=== PATIENT | male | born 1965 | race Caucasian/White ===

== ENCOUNTER 2016-07-10 15:22 | Emergency (ER) | payer SELFPAY ==
[~2016-07-10] VITALS: Ht 170.1 cm; Wt 85.7 kg
[~2016-07-10 15:22] MED LIST: ANAPROX DS550 MG PO; ATENOLOL25 MG PO; ATENOLOL50 MG PO; BACTRIM DS 8001 TA1 PO; BP PILL; CIPRO500 MG PO; DOLOPHINE5 MG PO; DOXYCYCLINE100 M3 PO; FLEXERIL10 MG PO; FLEXERIL5 MG PO; HYDROCODONE BIT1 T11 PO; LISINOPRIL HCTZ1 TA1 PO; LISINOPRIL-HYDR1 TA2 PO; LISINOPRIL20 MG PO; MINIPRESS1 M1 PO; MOTRIN800 MG PO; MS CONTIN60 MG PO; Motrin,Rufen800 MG PO; NEURONTIN300 MG PO; OMEPRAZOLE20 MG PO; OXYCODONE HCL20 M1 PO; OXYCODONE HCL30 MG PO; OXYCODONE15 MG PO; OXYCODONE30 MG PO; OXYCONTIN15 MG PO; OXYCONTIN40 MG PO; PERCOCET 325 MG1 TA2 PO; PERCOCET 325 MG1 TA6 PO; PERCOCET 325 MG1 TAB PO; PERCOCET 650 MG1 TA1 PO; PHENERGAN W/ DE30 ML PO; PHENERGAN W/DM120 ML PO; PREDNICOT10 MG PO; PREDNICOT20 MG PO; PREDNISONE10 MG PO; PRILOSEC20 MG PO; PROAIR HFA0.09 MG/AC INH; ROXICODONE30 MG PO; TRAMADOL HCL50 MG PO; ULTRAM50 MG PO; VIBRAMYCIN100 MG PO; VICODIN 500 MG-1 TAB PO; VICODIN HP 6601 TA1 PO; VOLTAREN50 M1 PO; ZESTRIL,PRINIVI20 MG PO; ZESTRIL20 MG PO; ZITHROMAX250 MG PO
[2016-07-10] MEDS ORDERED: GOOD NEIGHBOR L10 MG PO (16:01)
[2016-07-10] MEDS ORDERED: HYDROXYZINE PAM50 MG PO (16:02)
[2016-07-10] MEDS ORDERED: OXYCODONE AND A1 TA3 PO (16:02)
[2016-07-10] MEDS ORDERED: FLUTICASON0.05 MG/AC NAS (16:02)
[2016-07-10] MEDS ORDERED: CITALOPRAM HYDR40 MG PO (16:02)
[2016-07-10] MEDS ORDERED: LISINOPRIL AND1 TA2 PO (16:02)
[2016-07-10] MEDS ORDERED: NOVAPLUS V0.09 MG/Ac INH (16:03)
[2016-07-10 18:00] VITALS: BP 118/74
[2016-07-11] MEDS ORDERED: CEPHALEXIN500 M1 PO (12:05)
== END 2016-07-10 17:26 | disposition home or self-care (01) ==
LOC: ED 15:22
DX: T24.201A Burn of second degree of unspecified site of right lower limb, except ankle and foot, initial encounter (principal); T23.201A Burn of second degree of right hand, unspecified site, initial encounter; I10 Essential (primary) hypertension; G89.29 Other chronic pain; M54.9 Dorsalgia, unspecified; X03.0XXA Exposure to flames in controlled fire, not in building or structure, initial encounter; Y93.89 Activity, other specified; Y92.9 Unspecified place or not applicable; Y99.9 Unspecified external cause status

== ENCOUNTER 2016-07-11 11:36 | Emergency (ER) | payer SELFPAY ==
[~2016-07-11 11:36] MED LIST changes: +CITALOPRAM HYDR40 MG PO; +FLUTICASON0.05 MG/AC NAS; +GOOD NEIGHBOR L10 MG PO; +HYDROXYZINE PAM50 MG PO; +LISINOPRIL AND1 TA2 PO; +NOVAPLUS V0.09 MG/Ac INH; +OXYCODONE AND A1 TA3 PO
[2016-07-11 11:50] VITALS: BP 134/66
[2016-07-11] MEDS ORDERED: CEPHALEXIN500 M1 PO (12:05)
== END 2016-07-11 12:23 | disposition home or self-care (01) ==
LOC: ED 11:36
DX: Z48.00 Encounter for change or removal of nonsurgical wound dressing (principal); T24.201D Burn of second degree of unspecified site of right lower limb, except ankle and foot, subsequent encounter; F17.200 Nicotine dependence, unspecified, uncomplicated; Z98.890 Other specified postprocedural states; Z79.899 Other long term (current) drug therapy; X58.XXXD Exposure to other specified factors, subsequent encounter

== ENCOUNTER 2016-07-17 10:56 | Emergency (ER) | payer MEDICAID ==
[~2016-07-17] VITALS: Ht 170.1 cm; Wt 86.2 kg
[~2016-07-17 10:56] MED LIST changes: +CEPHALEXIN500 M1 PO
[2016-07-17 10:59] VITALS: BP 142/76
[2016-07-17] MEDS ORDERED: SILVADENE1% T (11:05)
== END 2016-07-17 11:15 | disposition home or self-care (01) ==
LOC: ED 10:56
DX: Z48.00 Encounter for change or removal of nonsurgical wound dressing (principal); R03.0 Elevated blood-pressure reading, without diagnosis of hypertension; I10 Essential (primary) hypertension; F17.200 Nicotine dependence, unspecified, uncomplicated

== ENCOUNTER → 2016-07-29 | Outpatient (CLI) | payer MEDICAID ==
[~2016-07-29] MED LIST changes: +SILVADENE1% T
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
== END ==
LOC: WOUNDCARE 12:28
DX: T24.231D Burn of second degree of right lower leg, subsequent encounter (principal); I10 Essential (primary) hypertension; F32.9 Major depressive disorder, single episode, unspecified; F17.210 Nicotine dependence, cigarettes, uncomplicated; X08.8XXD Exposure to other specified smoke, fire and flames, subsequent encounter

== ENCOUNTER → 2016-08-05 | Outpatient (CLI) | payer MEDICAID ==
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
== END ==
LOC: WOUNDCARE 02:44
DX: T24.231D Burn of second degree of right lower leg, subsequent encounter (principal); X08.8XXD Exposure to other specified smoke, fire and flames, subsequent encounter

== ENCOUNTER → 2017-01-11 | Outpatient (CLI) | payer OTHER | END | disposition home or self-care (01) | LOC: MRI 13:35 | DX: M51.26 Other intervertebral disc displacement, lumbar region (principal); M51.36 Other intervertebral disc degeneration, lumbar region; M47.896 Other spondylosis, lumbar region ==

== ENCOUNTER 2017-03-07 15:54 | Emergency (ER) | payer OTHER ==
[~2017-03-07] VITALS: Ht 172.7 cm; Wt 86.6 kg
[2017-03-07 16:18] VITALS: BP 159/87
== END 2017-03-07 16:46 | disposition home or self-care (01) ==
LOC: ED 15:54
DX: Z00.8 Encounter for other general examination (principal); F17.200 Nicotine dependence, unspecified, uncomplicated; Z79.899 Other long term (current) drug therapy

== ENCOUNTER → 2017-05-11 | Outpatient (CLI) | payer OTHER | END | disposition home or self-care (01) | LOC: RAD 12:52 | DX: J32.1 Chronic frontal sinusitis (principal); J40 Bronchitis, not specified as acute or chronic; R05 Cough; R09.89 Other specified symptoms and signs involving the circulatory and respiratory systems; I10 Essential (primary) hypertension; F17.200 Nicotine dependence, unspecified, uncomplicated ==

== ENCOUNTER 2017-10-07 15:44 | Emergency (ER) | payer OTHER ==
[~2017-10-07] VITALS: Ht 170.1 cm; Wt 91.2 kg
[2017-10-07 15:48] VITALS: BP 130/94
[2017-10-07] MEDS ORDERED: DIPHENHYDRAMINE50 M1 PO (16:10)
[2017-10-07] MEDS ORDERED: LIDEX 0.05% CRE15 GM T (16:10)
[2017-10-07] MEDS ORDERED: PREDNISONE20 M1 PO (16:10)
[2017-12-01] MEDS ORDERED: VIBRAMYCIN100 MG PO (12:41)
== END 2017-10-07 16:15 | disposition home or self-care (01) ==
LOC: ED 15:44
DX: L25.9 Unspecified contact dermatitis, unspecified cause (principal); I10 Essential (primary) hypertension; Z79.899 Other long term (current) drug therapy

== ENCOUNTER → 2018-03-22 | Outpatient (CLI) | payer OTHER ==
[~2018-03-22] MED LIST changes: +AUGMENTIN 875875 MG PO; +AVPAK AZITHROM250 MG PO; +BACLOFEN5 MG PO; +CLONAZEPAM0.5 M2 PO; +DIPHENHYDRAMINE50 M1 PO; +LIDEX 0.05% CRE15 GM T; +LORATADINE-D 21 EACH PO; +MIRTAZAPINE30 M2 PO; +MUCINEX ER600 MG PO; +PERCOCET 7.5-31 EACH PO; +PREDNISONE20 M1 PO
== END | disposition home or self-care (01) ==
LOC: LAB 10:44
DX: R53.83 Other fatigue (principal)

== ENCOUNTER 2018-06-17 14:26 | Emergency (ER) | payer OTHER ==
[~2018-06-17] VITALS: Ht 170.1 cm; Wt 95.3 kg
[2018-06-17 14:27] VITALS: BP 171/105
== END 2018-06-17 15:06 | disposition home or self-care (01) ==
LOC: ED 14:26
DX: G89.29 Other chronic pain (principal); M54.9 Dorsalgia, unspecified; F17.200 Nicotine dependence, unspecified, uncomplicated; Z76.0 Encounter for issue of repeat prescription; Z79.899 Other long term (current) drug therapy

== ENCOUNTER 2018-06-18 16:10 | Emergency (ER) | payer OTHER ==
[~2018-06-18] VITALS: Ht 170.1 cm; Wt 95.3 kg
[2018-06-18 16:12] VITALS: BP 141/98
== END 2018-06-18 17:47 | disposition home or self-care (01) ==
LOC: ED 16:10
DX: M54.41 Lumbago with sciatica, right side (principal); F17.200 Nicotine dependence, unspecified, uncomplicated; Z79.899 Other long term (current) drug therapy

== ENCOUNTER 2018-06-20 00:12 | Emergency (ER) | payer OTHER ==
[~2018-06-20] VITALS: Ht 170.1 cm; Wt 104.3 kg
[2018-06-20 00:15] VITALS: BP 130/70
== END 2018-06-20 02:00 | disposition home or self-care (01) ==
LOC: ED 00:12
DX: G89.29 Other chronic pain (principal); R10.9 Unspecified abdominal pain; K21.9 Gastro-esophageal reflux disease without esophagitis; J44.9 Chronic obstructive pulmonary disease, unspecified; I10 Essential (primary) hypertension; F17.200 Nicotine dependence, unspecified, uncomplicated; Z79.899 Other long term (current) drug therapy

== ENCOUNTER 2018-06-23 10:54 | Emergency (ER) | payer OTHER ==
[~2018-06-23] VITALS: Ht 170.1 cm; Wt 99.8 kg
[2018-06-23 14:16] VITALS: BP 134/81
== END 2018-06-23 14:27 | disposition home or self-care (01) ==
LOC: ED 10:54
DX: G89.29 Other chronic pain (principal); M54.5 Low back pain; J44.9 Chronic obstructive pulmonary disease, unspecified; K21.9 Gastro-esophageal reflux disease without esophagitis; I10 Essential (primary) hypertension; F17.200 Nicotine dependence, unspecified, uncomplicated; Z79.899 Other long term (current) drug therapy

== ENCOUNTER 2018-08-25 15:58 | Emergency (ER) | payer OTHER ==
[~2018-08-25] VITALS: Ht 170.1 cm; Wt 96.2 kg
[2018-08-25 16:02] VITALS: BP 116/77
[2018-08-25] MEDS ORDERED: PREDNISONE20 M1 PO (16:55)
[2018-08-25] MEDS ORDERED: PERCOCET 7.5-31 EACH PO (16:55)
[2018-08-25] MEDS ORDERED: ROBAXIN500 M1 PO (16:55)
== END 2018-08-25 17:18 | disposition home or self-care (01) ==
LOC: ED 15:58
DX: G89.29 Other chronic pain (principal); M54.5 Low back pain; R20.0 Anesthesia of skin; R20.2 Paresthesia of skin; R22.2 Localized swelling, mass and lump, trunk; F17.200 Nicotine dependence, unspecified, uncomplicated; Z79.899 Other long term (current) drug therapy

== ENCOUNTER → 2018-09-15 | Outpatient (CLI) | payer OTHER ==
[~2018-09-15] MED LIST changes: +ROBAXIN500 M1 PO
[2018-09-15 09:42] LABS: BASO % 0.4 % (0.0-1.0); EOS # 0.2 10*3/uL (0.0-0.4); EOS % 2.3 % (1.0-4.0); HEMATOCRIT 42.7 % (42.0-52.0); HEMOGLOBIN 14.6 g/dl (14.0-18.0); LYMPH % 36.5 % (27.0-41.0); MEAN CELL VOLUME 98.6 fl (80.0-94.0); MEAN CORPUSCULAR HGB 33.7 pg (27.0-31.0); MEAN CORPUSCULAR HGB CONC 34.2 g/dl (33.0-37.0); MEAN PLATELET VOLUME 9.3 fl (9.6-12.3); MONO # 0.6 10*3/uL (0.1-1.0); MONO % 7.8 % (3.0-9.0); NEUT # 4.2 10*3/uL (2.3-7.9); NEUT % 51.3 % (47.0-73.0); PLATELET COUNT AUTOMATED 208 10*3/uL (130-400); RED BLOOD COUNT 4.33 10*6/uL (4.50-5.90); RED CELL DISTRI WIDTH 13.5 % (0-14.5); WHITE BLOOD COUNT 8.2 10*3/uL (4.8-10.8)
[2018-09-15 10:13] LABS: ACT PARTIAL THROMBO TIME 28.6 SECONDS (20.0-32.1); INTERNATIONAL NORM RATIO 0.9 (2.0-3.5)
== END | disposition home or self-care (01) ==
LOC: LAB 09:22
PROVIDERS: Nurse Practitioner Primary Care
DX: D68.9 Coagulation defect, unspecified (principal)

== ENCOUNTER → 2018-10-13 | Outpatient (CLI) | payer OTHER | END | disposition home or self-care (01) | LOC: RESCLI 00:22 | DX: Z12.11 Encounter for screening for malignant neoplasm of colon (principal); M54.40 Lumbago with sciatica, unspecified side; G89.29 Other chronic pain; F41.9 Anxiety disorder, unspecified; J30.2 Other seasonal allergic rhinitis; I10 Essential (primary) hypertension; J44.9 Chronic obstructive pulmonary disease, unspecified; N52.8 Other male erectile dysfunction; G25.81 Restless legs syndrome; K21.9 Gastro-esophageal reflux disease without esophagitis; Z72.0 Tobacco use; Z79.899 Other long term (current) drug therapy; Z88.8 Allergy status to other drugs, medicaments and biological substances ==

== ENCOUNTER 2018-12-19 10:01 | Emergency (ER) | payer OTHER ==
[~2018-12-19] VITALS: Ht 172.7 cm; Wt 92.1 kg
[2018-12-19 10:04] VITALS: BP 134/78
[2018-12-19] MEDS ORDERED: PREDNISONE20 M1 PO (11:16)
[2018-12-19] MEDS ORDERED: ROBAXIN500 M1 PO (11:21)
== END 2018-12-19 11:23 | disposition home or self-care (01) ==
LOC: ED 10:01
DX: S39.012A Strain of muscle, fascia and tendon of lower back, initial encounter (principal); M54.41 Lumbago with sciatica, right side; F17.200 Nicotine dependence, unspecified, uncomplicated; Z79.899 Other long term (current) drug therapy; W01.0XXA Fall on same level from slipping, tripping and stumbling without subsequent striking against object, initial encounter; Y93.E5 Activity, floor mopping and cleaning; Y92.098 Other place in other non-institutional residence as the place of occurrence of the external cause; Y99.8 Other external cause status

== ENCOUNTER → 2018-12-19 | Outpatient (CLI) | payer OTHER | END | disposition home or self-care (01) | LOC: RESCLI 09:18 | DX: S79.911A Unspecified injury of right hip, initial encounter (principal); J44.9 Chronic obstructive pulmonary disease, unspecified; F41.9 Anxiety disorder, unspecified; J30.2 Other seasonal allergic rhinitis; N52.8 Other male erectile dysfunction; M54.40 Lumbago with sciatica, unspecified side; G25.81 Restless legs syndrome; I10 Essential (primary) hypertension; F17.210 Nicotine dependence, cigarettes, uncomplicated; X58.XXXA Exposure to other specified factors, initial encounter; Y93.89 Activity, other specified; Y92.89 Other specified places as the place of occurrence of the external cause; Y99.8 Other external cause status; Z79.899 Other long term (current) drug therapy ==

== ENCOUNTER 2018-12-30 14:17 | Emergency (ER) | payer OTHER ==
[~2018-12-30] VITALS: Wt 93.0 kg
[2018-12-30 14:18] VITALS: BP 156/90
[2018-12-30] MEDS ORDERED: Motrin,Rufen800 MG PO ×2 (15:56→16:19)
== END 2018-12-30 16:40 | disposition home or self-care (01) ==
LOC: ED 14:17
DX: S40.011A Contusion of right shoulder, initial encounter (principal); S00.81XA Abrasion of other part of head, initial encounter; G89.29 Other chronic pain; K21.9 Gastro-esophageal reflux disease without esophagitis; I10 Essential (primary) hypertension; E78.00 Pure hypercholesterolemia, unspecified; F17.200 Nicotine dependence, unspecified, uncomplicated; Z98.890 Other specified postprocedural states; Z79.899 Other long term (current) drug therapy; Y04.0XXA Assault by unarmed brawl or fight, initial encounter; Y93.89 Activity, other specified; Y92.89 Other specified places as the place of occurrence of the external cause; Y99.9 Unspecified external cause status

== ENCOUNTER 2019-01-13 12:50 | Emergency (ER) | payer OTHER ==
[~2019-01-13] VITALS: Ht 170.1 cm; Wt 93.9 kg
[2019-01-13 12:53] VITALS: BP 125/82
[2019-01-13 13:24] LABS: BASO % 0.2 % (0.0-1.0); EOS # 0.1 10*3/uL (0.0-0.4); EOS % 1.2 % (1.0-4.0); HEMATOCRIT 45.1 % (42.0-52.0); HEMOGLOBIN 15.3 g/dl (14.0-18.0); LYMPH # 1.9 10*3/uL (1.3-4.4); LYMPH % 21.5 % (27.0-41.0); MEAN CELL VOLUME 95.8 fl (80.0-94.0); MEAN CORPUSCULAR HGB 32.5 pg (27.0-31.0); MEAN CORPUSCULAR HGB CONC 33.9 g/dl (33.0-37.0); MEAN PLATELET VOLUME 9.2 fl (9.6-12.3); MONO # 0.6 10*3/uL (0.1-1.0); NEUT # 6.1 10*3/uL (2.3-7.9); NEUT % 68.9 % (47.0-73.0); PLATELET COUNT AUTOMATED 306 10*3/uL (130-400); RED BLOOD COUNT 4.71 10*6/uL (4.50-5.90); RED CELL DISTRI WIDTH 12.8 % (0-14.5); WHITE BLOOD COUNT 8.9 10*3/uL (4.8-10.8)
[2019-01-13 13:39] LABS: ALBUMIN 3.5 gm/dl (3.1-4.5); ALKALINE PHOSPHATASE 98 U/L (45-117); BUN 11 mg/dl (7-24); CHLORIDE 98 mmol/L (98-107); CREATININE 0.92 mg/dL (0.70-1.30); POTASSIUM 3.6 mmol/L (3.5-5.1); SGOT/AST 21 IU/L (3-35); SGPT/ALT 27 U/L (12-78); SODIUM 131 mmol/L (136-145); TOTAL PROTEIN 7.7 gm/dL (6.4-8.2)
== END 2019-01-13 22:05 | disposition short-term general hospital (02) ==
LOC: ED 12:50
PROVIDERS: Emergency Medicine
DX: N50.812 Left testicular pain (principal); N50.811 Right testicular pain; R10.30 Lower abdominal pain, unspecified; G89.29 Other chronic pain; J44.9 Chronic obstructive pulmonary disease, unspecified; K21.9 Gastro-esophageal reflux disease without esophagitis; I10 Essential (primary) hypertension; F17.200 Nicotine dependence, unspecified, uncomplicated; Z79.899 Other long term (current) drug therapy

== ENCOUNTER 2019-01-23 20:43 | Emergency (ER) | payer OTHER ==
[~2019-01-23] VITALS: Ht 170.1 cm; Wt 92.1 kg
[2019-01-23 21:26] VITALS: BP 149/88
== END 2019-01-23 22:20 | disposition home or self-care (01) ==
LOC: ED 20:43
DX: G89.29 Other chronic pain (principal); M25.511 Pain in right shoulder; J44.9 Chronic obstructive pulmonary disease, unspecified; K21.9 Gastro-esophageal reflux disease without esophagitis; I10 Essential (primary) hypertension; F17.200 Nicotine dependence, unspecified, uncomplicated; Z79.899 Other long term (current) drug therapy

== ENCOUNTER → 2019-04-06 | Outpatient (CLI) | payer OTHER ==
[~2019-04-06] MED LIST changes: +ZANAFLEX4 M1 PO
== END | disposition home or self-care (01) ==
LOC: RESCLI 04-05 08:38
DX: Z12.5 Encounter for screening for malignant neoplasm of prostate (principal); Z13.29 Encounter for screening for other suspected endocrine disorder; Z12.11 Encounter for screening for malignant neoplasm of colon; Z13.220 Encounter for screening for lipoid disorders; S49.91XA Unspecified injury of right shoulder and upper arm, initial encounter; M54.40 Lumbago with sciatica, unspecified side; G25.81 Restless legs syndrome; J44.9 Chronic obstructive pulmonary disease, unspecified; I10 Essential (primary) hypertension; F41.9 Anxiety disorder, unspecified; J30.2 Other seasonal allergic rhinitis; E55.9 Vitamin D deficiency, unspecified; F31.9 Bipolar disorder, unspecified; K40.91 Unilateral inguinal hernia, without obstruction or gangrene, recurrent; N52.8 Other male erectile dysfunction; Z72.0 Tobacco use

== ENCOUNTER 2019-04-08 11:20 | Emergency (ER) | payer OTHER ==
[~2019-04-08] VITALS: Ht 170.1 cm; Wt 95.3 kg
[~2019-04-08 11:20] MED LIST changes: -ZANAFLEX4 M1 PO
[2019-04-08 11:21] VITALS: BP 147/76
[2019-04-08] MEDS ORDERED: ZANAFLEX4 M1 PO (12:53)
== END 2019-04-08 12:58 | disposition home or self-care (01) ==
LOC: ED 11:20
DX: J06.9 Acute upper respiratory infection, unspecified (principal); G89.29 Other chronic pain; K21.9 Gastro-esophageal reflux disease without esophagitis; I10 Essential (primary) hypertension; J44.9 Chronic obstructive pulmonary disease, unspecified; F17.200 Nicotine dependence, unspecified, uncomplicated; Z79.899 Other long term (current) drug therapy

== ENCOUNTER 2019-04-10 14:26 | Emergency (ER) | payer OTHER ==
[~2019-04-10] VITALS: Ht 170.1 cm; Wt 95.3 kg
[~2019-04-10 14:26] MED LIST changes: +ZANAFLEX4 M1 PO
[2019-04-10 14:27] VITALS: BP 146/88
== END 2019-04-10 15:51 | disposition left against medical advice (07) ==
LOC: ED 14:26
DX: M54.9 Dorsalgia, unspecified (principal); Z76.0 Encounter for issue of repeat prescription; Z53.21 Procedure and treatment not carried out due to patient leaving prior to being seen by health care provider

== ENCOUNTER 2019-04-14 11:02 | Emergency (ER) | payer OTHER ==
[~2019-04-14] VITALS: Wt 108.9 kg
[2019-04-14 11:03] VITALS: BP 155/88
[2019-04-14] MEDS ORDERED: MUCINEX1200 M1 PO (11:24)
[2019-04-14] MEDS ORDERED: PERCOCET 10-321 EACH PO (11:27)
== END 2019-04-14 11:32 | disposition home or self-care (01) ==
LOC: ED 11:02
DX: J06.9 Acute upper respiratory infection, unspecified (principal); G89.29 Other chronic pain; M54.5 Low back pain; I10 Essential (primary) hypertension; K21.9 Gastro-esophageal reflux disease without esophagitis; J44.9 Chronic obstructive pulmonary disease, unspecified; F17.200 Nicotine dependence, unspecified, uncomplicated; Z79.899 Other long term (current) drug therapy

== ENCOUNTER → 2019-11-22 | Outpatient (CLI) | payer OTHER ==
[~2019-11-22] MED LIST changes: +MUCINEX1200 M1 PO; +PERCOCET 10-321 EACH PO
== END | disposition home or self-care (01) ==
LOC: RESCLI 03:53
DX: Z12.11 Encounter for screening for malignant neoplasm of colon (principal); N52.8 Other male erectile dysfunction; G25.81 Restless legs syndrome; J30.2 Other seasonal allergic rhinitis; M54.40 Lumbago with sciatica, unspecified side; G47.9 Sleep disorder, unspecified; J44.9 Chronic obstructive pulmonary disease, unspecified; I10 Essential (primary) hypertension; E55.9 Vitamin D deficiency, unspecified; K21.9 Gastro-esophageal reflux disease without esophagitis; E78.00 Pure hypercholesterolemia, unspecified; F41.9 Anxiety disorder, unspecified

== ENCOUNTER 2019-12-09 12:58 | Emergency (ER) | payer OTHER ==
[~2019-12-09] VITALS: Ht 170.1 cm; Wt 90.7 kg
[2019-12-09 13:18] VITALS: BP 137/97
== END 2019-12-09 15:31 | disposition home or self-care (01) ==
LOC: ED 12:58
DX: G89.29 Other chronic pain (principal); R05 Cough; F17.200 Nicotine dependence, unspecified, uncomplicated; Z20.828 Contact with and (suspected) exposure to other viral communicable diseases; Z79.899 Other long term (current) drug therapy

== ENCOUNTER → 2020-03-13 | Outpatient (CLI) | payer OTHER | END | disposition home or self-care (01) | LOC: COVID19 09:31 | PROVIDERS: ATTEND Social Worker Clinical | DX: Z20.828 Contact with and (suspected) exposure to other viral communicable diseases (principal) ==

== ENCOUNTER → 2020-04-21 | Outpatient (CLI) | payer OTHER | END | disposition home or self-care (01) | LOC: COVID19 15:00 | PROVIDERS: ATTEND Internal Medicine | DX: Z11.52 Encounter for screening for COVID-19 (principal) ==

== ENCOUNTER 2020-07-05 13:05 | Emergency (ER) | payer OTHER ==
[~2020-07-05] VITALS: Ht 170.1 cm; Wt 94.3 kg
[2020-07-05 13:23] VITALS: BP 126/69
[2020-07-05] MEDS ORDERED: PERCOCET 7.5-31 EACH PO (14:15)
== END 2020-07-05 14:38 | disposition home or self-care (01) ==
LOC: ED 13:05
DX: Z76.0 Encounter for issue of repeat prescription (principal); Z79.899 Other long term (current) drug therapy; Z98.890 Other specified postprocedural states

== ENCOUNTER → 2020-07-24 | Outpatient (CLI) | payer OTHER | END | disposition home or self-care (01) | LOC: RESCLI 02:15 | PROVIDERS: ATTEND Internal Medicine Nephrology | DX: Z12.11 Encounter for screening for malignant neoplasm of colon (principal); E55.9 Vitamin D deficiency, unspecified; M54.40 Lumbago with sciatica, unspecified side; J44.9 Chronic obstructive pulmonary disease, unspecified; J30.2 Other seasonal allergic rhinitis; I10 Essential (primary) hypertension; K21.9 Gastro-esophageal reflux disease without esophagitis; G89.4 Chronic pain syndrome; G25.81 Restless legs syndrome; N52.8 Other male erectile dysfunction; F17.200 Nicotine dependence, unspecified, uncomplicated; Z79.899 Other long term (current) drug therapy; Z98.890 Other specified postprocedural states ==

== ENCOUNTER 2020-08-05 16:51 | Emergency (ER) | payer OTHER ==
[2020-08-05 17:45] VITALS: BP 142/88
== END 2020-08-05 19:22 | disposition home or self-care (01) ==
LOC: ED 16:51
DX: M54.5 Low back pain (principal); G89.29 Other chronic pain; Z79.899 Other long term (current) drug therapy; Z98.890 Other specified postprocedural states

== ENCOUNTER → 2020-08-27 | Outpatient (CLI) | payer OTHER | END | disposition home or self-care (01) | LOC: RESCLI 08:39 | PROVIDERS: ATTEND Student in an Organized Health Care Education/Training Program | DX: E55.9 Vitamin D deficiency, unspecified (principal); J44.9 Chronic obstructive pulmonary disease, unspecified; J30.2 Other seasonal allergic rhinitis; I10 Essential (primary) hypertension; K21.9 Gastro-esophageal reflux disease without esophagitis; N52.8 Other male erectile dysfunction; F41.9 Anxiety disorder, unspecified; G25.81 Restless legs syndrome; F17.210 Nicotine dependence, cigarettes, uncomplicated; Z79.899 Other long term (current) drug therapy; Z98.890 Other specified postprocedural states ==

== ENCOUNTER 2020-09-09 03:03 | Emergency (ER) | payer OTHER ==
[~2020-09-09] VITALS: Ht 172.7 cm; Wt 99.8 kg
[2020-09-09 03:25] VITALS: BP 164/100
== END 2020-09-09 03:47 | disposition home or self-care (01) ==
LOC: ED 03:03
DX: M25.551 Pain in right hip (principal); G89.29 Other chronic pain; Z79.899 Other long term (current) drug therapy; Z98.890 Other specified postprocedural states

== ENCOUNTER → 2020-10-03 | Outpatient (CLI) | payer OTHER | END | disposition home or self-care (01) | LOC: RESCLI 01:44 | PROVIDERS: ATTEND Internal Medicine | DX: Z12.11 Encounter for screening for malignant neoplasm of colon (principal); Z12.2 Encounter for screening for malignant neoplasm of respiratory organs; N52.8 Other male erectile dysfunction; E55.9 Vitamin D deficiency, unspecified; J44.9 Chronic obstructive pulmonary disease, unspecified; J30.2 Other seasonal allergic rhinitis; I10 Essential (primary) hypertension; K21.9 Gastro-esophageal reflux disease without esophagitis; G25.81 Restless legs syndrome; F41.9 Anxiety disorder, unspecified; E66.9 Obesity, unspecified; M54.30 Sciatica, unspecified side; Z79.899 Other long term (current) drug therapy ==

== ENCOUNTER 2020-10-08 15:36 | Emergency (ER) | payer OTHER ==
[~2020-10-08] VITALS: Ht 170.1 cm; Wt 93.4 kg
[2020-10-08 15:39] VITALS: BP 157/90
== END 2020-10-08 18:18 | disposition home or self-care (01) ==
LOC: ED 15:36
DX: S70.02XA Contusion of left hip, initial encounter (principal); F17.200 Nicotine dependence, unspecified, uncomplicated; Z79.899 Other long term (current) drug therapy; Z98.890 Other specified postprocedural states; W19.XXXA Unspecified fall, initial encounter; Y93.89 Activity, other specified; Y92.89 Other specified places as the place of occurrence of the external cause; Y99.8 Other external cause status

== ENCOUNTER → 2020-10-24 | Outpatient (CLI) | payer OTHER ==
[~2020-10-24] MED LIST changes: +HYDROCODONE-AC1 EAC1 PO
[2020-10-24 11:18] LABS: BASO # 0.1 10*3/uL (0.0-0.1); BASO % 0.7 % (0.0-1.0); EOS # 0.4 10*3/uL (0.0-0.4); EOS % 4.9 % (1.0-4.0); LYMPH # 2.2 10*3/uL (1.3-4.4); LYMPH % 29.9 % (27.0-41.0); MEAN CELL VOLUME 96.6 fl (80.0-94.0); MEAN CORPUSCULAR HGB 32.2 pg (27.0-31.0); MEAN CORPUSCULAR HGB CONC 33.3 g/dl (33.0-37.0); MEAN PLATELET VOLUME 9.6 fl (9.6-12.3); MONO # 0.9 10*3/uL (0.1-1.0); MONO % 12.1 % (3.0-9.0); NEUT # 3.7 10*3/uL (2.3-7.9); NEUT % 50.6 % (47.0-73.0); PLATELET COUNT AUTOMATED 214 10*3/uL (130-400); RED BLOOD COUNT 4.66 10*6/uL (4.50-5.90); RED CELL DISTRI WIDTH 13.9 % (0-14.5); WHITE BLOOD COUNT 7.4 10*3/uL (4.8-10.8)
[2020-10-24 11:41] LABS: ALBUMIN 3.6 gm/dl (3.1-4.5); BUN 10 mg/dl (7-24); CHLORIDE 100 mmol/L (98-107); CHOLESTEROL 218 mg/dL (<200); POTASSIUM 3.5 mmol/L (3.5-5.1); SGOT/AST 18 IU/L (3-35); SGPT/ALT 24 U/L (12-78); SODIUM 136 mmol/L (136-145); TOTAL PROTEIN 7.6 gm/dL (6.4-8.2); TRIGLYCERIDES 398 mg/dl (<150)
[2020-10-24 11:51] LABS: ALKALINE PHOSPHATASE 93 U/L (45-117); LDL CHOLESTEROL 94 mg/dL (9-159)
[2020-10-30 00:06] LABS: TESTOSTERONE FREE, (DIRECT) 7.5 pg/mL (7.2-24.0)
== END | disposition home or self-care (01) ==
LOC: LAB 10:09
PROVIDERS: Internal Medicine; ATTEND Student in an Organized Health Care Education/Training Program
DX: I10 Essential (primary) hypertension (principal); E66.9 Obesity, unspecified; N52.8 Other male erectile dysfunction

== ENCOUNTER → 2020-11-03 | Outpatient (CLI) | payer OTHER | END | disposition home or self-care (01) | LOC: NM 06:25 | PROVIDERS: ATTEND Orthopaedic Surgery | DX: M13.89 Other specified arthritis, multiple sites (principal); M76.01 Gluteal tendinitis, right hip; M60.88 Other myositis, other site; M70.61 Trochanteric bursitis, right hip; M46.1 Sacroiliitis, not elsewhere classified ==

== ENCOUNTER 2020-11-23 14:07 | Emergency (ER) | payer OTHER ==
[~2020-11-23] VITALS: Ht 170.1 cm; Wt 93.4 kg
[~2020-11-23 14:07] MED LIST changes: -HYDROCODONE-AC1 EAC1 PO
[2020-11-23 14:16] VITALS: BP 178/98
[2020-11-23] MEDS ORDERED: HYDROCODONE-AC1 EAC1 PO (16:20)
== END 2020-11-23 16:36 | disposition home or self-care (01) ==
LOC: ED 14:07
DX: S63.502A Unspecified sprain of left wrist, initial encounter (principal); F17.200 Nicotine dependence, unspecified, uncomplicated; Z79.899 Other long term (current) drug therapy; Z98.890 Other specified postprocedural states; W22.01XA Walked into wall, initial encounter; Y93.89 Activity, other specified; Y92.89 Other specified places as the place of occurrence of the external cause; Y99.8 Other external cause status

== ENCOUNTER → 2020-12-17 | Outpatient (CLI) | payer OTHER ==
[~2020-12-17] MED LIST changes: +HYDROCODONE-AC1 EAC1 PO
== END | disposition home or self-care (01) ==
LOC: RESCLI 01:17
PROVIDERS: ATTEND Family Medicine
DX: J44.9 Chronic obstructive pulmonary disease, unspecified (principal); I10 Essential (primary) hypertension; K21.9 Gastro-esophageal reflux disease without esophagitis; M47.814 Spondylosis without myelopathy or radiculopathy, thoracic region; Z79.899 Other long term (current) drug therapy; N52.8 Other male erectile dysfunction; E55.9 Vitamin D deficiency, unspecified; J30.2 Other seasonal allergic rhinitis; G25.81 Restless legs syndrome; F41.9 Anxiety disorder, unspecified; G89.29 Other chronic pain

== ENCOUNTER → 2021-04-03 | Outpatient (CLI) | payer OTHER | END | disposition home or self-care (01) | LOC: MRI 10:00 | PROVIDERS: ATTEND Pain Medicine Interventional Pain Medicine | DX: M47.817 Spondylosis without myelopathy or radiculopathy, lumbosacral region (principal); M51.37 Other intervertebral disc degeneration, lumbosacral region; M96.1 Postlaminectomy syndrome, not elsewhere classified ==

== ENCOUNTER → 2021-04-20 | Outpatient (CLI) | payer OTHER | END | disposition home or self-care (01) | LOC: US 13:30 | PROVIDERS: ATTEND Internal Medicine | DX: R59.0 Localized enlarged lymph nodes (principal) ==

== ENCOUNTER → 2021-04-29 | Outpatient (CLI) | payer OTHER ==
[2021-04-29 10:08] LABS: BASO # 0.1 10*3/uL (0.0-0.1); BASO % 0.6 % (0.0-1.0); EOS # 0.3 10*3/uL (0.0-0.4); EOS % 3.6 % (1.0-4.0); HEMATOCRIT 44.7 % (42.0-52.0); LYMPH % 24.8 % (27.0-41.0); MEAN CELL VOLUME 91.4 fl (80.0-94.0); MEAN CORPUSCULAR HGB 31.9 pg (27.0-31.0); MEAN CORPUSCULAR HGB CONC 34.9 g/dl (33.0-37.0); MEAN PLATELET VOLUME 9.2 fl (9.6-12.3); MONO # 0.7 10*3/uL (0.1-1.0); MONO % 8.4 % (3.0-9.0); NEUT # 4.7 10*3/uL (2.3-7.9); NEUT % 60.3 % (47.0-73.0); PLATELET COUNT AUTOMATED 221 10*3/uL (130-400); RED BLOOD COUNT 4.89 10*6/uL (4.50-5.90); RED CELL DISTRI WIDTH 12.3 % (0-14.5); WHITE BLOOD COUNT 7.9 10*3/uL (4.8-10.8)
[2021-04-29 10:28] LABS: ALBUMIN 3.6 gm/dl (3.1-4.5); ALKALINE PHOSPHATASE 101 U/L (45-117); BUN 10 mg/dl (7-24); CHLORIDE 101 mmol/L (98-107); CREATININE 1.12 mg/dL (0.70-1.30); POTASSIUM 4.2 mmol/L (3.5-5.1); SGOT/AST 16 IU/L (3-35); SGPT/ALT 29 U/L (12-78); SODIUM 135 mmol/L (136-145)
== END | disposition home or self-care (01) ==
LOC: RESCLI 06:44
PROVIDERS: Internal Medicine; ATTEND Student in an Organized Health Care Education/Training Program
DX: R59.1 Generalized enlarged lymph nodes (principal); R10.31 Right lower quadrant pain

== ENCOUNTER → 2021-05-26 | Outpatient (CLI) | payer OTHER | END | disposition home or self-care (01) | LOC: CT 00:05 | PROVIDERS: ATTEND Emergency Medicine | DX: K57.30 Diverticulosis of large intestine without perforation or abscess without bleeding (principal); K65.4 Sclerosing mesenteritis; G89.29 Other chronic pain; N52.8 Other male erectile dysfunction; E55.9 Vitamin D deficiency, unspecified; K21.9 Gastro-esophageal reflux disease without esophagitis; H66.90 Otitis media, unspecified, unspecified ear; H61.20 Impacted cerumen, unspecified ear; E78.2 Mixed hyperlipidemia; H60.90 Unspecified otitis externa, unspecified ear; R59.1 Generalized enlarged lymph nodes ==

== ENCOUNTER → 2021-06-17 | Outpatient (CLI) | payer OTHER | END | disposition home or self-care (01) | LOC: COVID19 15:56 | PROVIDERS: ATTEND Internal Medicine | DX: Z20.822 Contact with and (suspected) exposure to COVID-19 (principal) ==

== ENCOUNTER 2021-07-11 15:31 | Emergency (ER) | payer OTHER ==
[~2021-07-11] VITALS: Ht 170.1 cm; Wt 98.9 kg
[2021-07-11 15:40] VITALS: BP 110/45
[2021-07-11] MEDS ORDERED: METHOCARBAMOL500 M1 PO (16:51)
== END 2021-07-11 17:05 | disposition home or self-care (01) ==
LOC: ED 15:31
DX: M79.10 Myalgia, unspecified site (principal); Z79.899 Other long term (current) drug therapy; Z87.891 Personal history of nicotine dependence; Z98.890 Other specified postprocedural states

== ENCOUNTER → 2021-07-24 | Outpatient (CLI) | payer OTHER ==
[~2021-07-24] MED LIST changes: +METHOCARBAMOL500 M1 PO
[2021-07-24 09:53] LABS: BASO % 0.4 % (0.0-1.0); EOS # 0.3 10*3/uL (0.0-0.4); EOS % 3.4 % (1.0-4.0); HEMATOCRIT 43.8 % (42.0-52.0); LYMPH # 2.6 10*3/uL (1.3-4.4); LYMPH % 26.5 % (27.0-41.0); MEAN CELL VOLUME 92.2 fl (80.0-94.0); MEAN CORPUSCULAR HGB 31.4 pg (27.0-31.0); MEAN PLATELET VOLUME 9.4 fl (9.6-12.3); MONO # 0.8 10*3/uL (0.1-1.0); MONO % 8.2 % (3.0-9.0); NEUT # 5.9 10*3/uL (2.3-7.9); NEUT % 60.1 % (47.0-73.0); PLATELET COUNT AUTOMATED 213 10*3/uL (130-400); RED BLOOD COUNT 4.75 10*6/uL (4.50-5.90); RED CELL DISTRI WIDTH 12.7 % (0-14.5); WHITE BLOOD COUNT 9.8 10*3/uL (4.8-10.8)
[2021-07-24 10:11] LABS: BUN 17 mg/dl (7-24); CHLORIDE 103 mmol/L (98-107); CHOLESTEROL 135 mg/dL (<200); CREATININE 1.12 mg/dL (0.70-1.30); POTASSIUM 3.9 mmol/L (3.5-5.1); SGOT/AST 17 IU/L (3-35); SGPT/ALT 37 U/L (12-78); SODIUM 135 mmol/L (136-145)
[2021-07-24 10:13] LABS: ALKALINE PHOSPHATASE 101 U/L (45-117); THYROXINE (T4) TOTAL 10.7 ug/dl (4.5-12.1); TOTAL PROTEIN 7.8 gm/dL (6.4-8.2); TRIGLYCERIDES 414 mg/dl (<150)
[2021-07-24 10:22] LABS: T3 UPTAKE 34 % (31-39)
== END | disposition home or self-care (01) ==
LOC: LAB 09:30
PROVIDERS: ATTEND Family Medicine
DX: Z13.1 Encounter for screening for diabetes mellitus (principal); Z13.6 Encounter for screening for cardiovascular disorders; Z51.81 Encounter for therapeutic drug level monitoring; Z00.00 Encounter for general adult medical examination without abnormal findings

== ENCOUNTER 2021-08-16 15:12 | Inpatient (IN) | payer OTHER ==
[~2021-08-16] VITALS: Ht 170.2 cm; Wt 104.8 kg
[2021-08-16 15:21] VITALS: BP 145/62
[2021-08-16 15:55] LABS: BASO % 0.3 % (0.0-1.0); EOS # 0.1 10*3/uL (0.0-0.4); EOS % 1.2 % (1.0-4.0); HEMATOCRIT 42.6 % (42.0-52.0); LYMPH # 1.8 10*3/uL (1.3-4.4); LYMPH % 16.2 % (27.0-41.0); MEAN CELL VOLUME 92.8 fl (80.0-94.0); MEAN CORPUSCULAR HGB 31.8 pg (27.0-31.0); MEAN CORPUSCULAR HGB CONC 34.3 g/dl (33.0-37.0); MEAN PLATELET VOLUME 9.7 fl (9.6-12.3); MONO # 0.9 10*3/uL (0.1-1.0); MONO % 8.4 % (3.0-9.0); NEUT # 8.1 10*3/uL (2.3-7.9); NEUT % 72.8 % (47.0-73.0); PLATELET COUNT AUTOMATED 169 10*3/uL (130-400); RED BLOOD COUNT 4.59 10*6/uL (4.50-5.90); RED CELL DISTRI WIDTH 13.1 % (0-14.5); WHITE BLOOD COUNT 11.1 10*3/uL (4.8-10.8)
[2021-08-16 16:13] LABS: ALKALINE PHOSPHATASE 112 U/L (45-117); BUN 10 mg/dl (7-24); CHLORIDE 104 mmol/L (98-107); CREATININE 1.11 mg/dL (0.70-1.30); POTASSIUM 3.7 mmol/L (3.5-5.1); SGOT/AST 14 IU/L (3-35); SGPT/ALT 21 U/L (12-78); SODIUM 136 mmol/L (136-145); TOTAL PROTEIN 7.5 gm/dL (6.4-8.2)
[2021-08-16 17:30] VITALS: BP 140/60
[2021-08-16] MEDS ORDERED: PERCOCET 10-321 EACH PO (19:26)
[2021-08-16] MEDS ORDERED: WELLBUTRIN SR150 MG PO (19:26)
[2021-08-16 19:33] VITALS: BP 140/58
[2021-08-16 20:58] VITALS: BP 138/79
[2021-08-16 21:27] VITALS: BP 138/74
[2021-08-16 22:00] VITALS: BP 140/66
[2021-08-16] MEDS ORDERED: DOXEPIN HCL10 MG PO (22:40)
[2021-08-16] MEDS ORDERED: ROPINIROLE HYDRO1 MG PO (22:40)
[2021-08-16] MEDS ORDERED: MELATONIN5 M1 PO (22:41)
[2021-08-17] VITALS (9 sets, daily range): BP systolic 116–161; BP diastolic 79–100
[2021-08-17 06:02] LABS: ALKALINE PHOSPHATASE 95 U/L (45-117); BUN 10 mg/dl (7-24); CHLORIDE 109 mmol/L (98-107); CHOLESTEROL 110 mg/dL (<200); CREATININE 0.98 mg/dL (0.70-1.30); LDL CHOLESTEROL 24 mg/dL (9-159); POTASSIUM 3.7 mmol/L (3.5-5.1); SGOT/AST 5 IU/L (3-35); SGPT/ALT 20 U/L (12-78); SODIUM 140 mmol/L (136-145); TOTAL PROTEIN 6.7 gm/dL (6.4-8.2); TRIGLYCERIDES 179 mg/dl (<150)
[2021-08-17 06:07] LABS: THYROID STIM HORMONE (HS) 0.703 uIU/ml (0.358-4.75)
[2021-08-17 06:17] LABS: BASO % 0.4 % (0.0-1.0); EOS # 0.2 10*3/uL (0.0-0.4); EOS % 2.2 % (1.0-4.0); HEMATOCRIT 38.7 % (42.0-52.0); LYMPH # 1.8 10*3/uL (1.3-4.4); LYMPH % 16.7 % (27.0-41.0); MEAN CELL VOLUME 94.6 fl (80.0-94.0); MEAN CORPUSCULAR HGB CONC 33.9 g/dl (33.0-37.0); MEAN PLATELET VOLUME 9.7 fl (9.6-12.3); MONO % 9.9 % (3.0-9.0); NEUT # 7.3 10*3/uL (2.3-7.9); NEUT % 69.5 % (47.0-73.0); PLATELET COUNT AUTOMATED 156 10*3/uL (130-400); RED BLOOD COUNT 4.09 10*6/uL (4.50-5.90); RED CELL DISTRI WIDTH 13.2 % (0-14.5); WHITE BLOOD COUNT 10.5 10*3/uL (4.8-10.8)
[2021-08-17] MEDS ORDERED: METHOCARBAMOL750 M1 PO (11:25)
[2021-08-17] MEDS ORDERED: VITAMIN D350 MCG PO (11:26)
[2021-08-17] MEDS ORDERED: ARNUITY ELLIPT50 MCG INH (11:26)
[2021-08-17] MEDS ORDERED: LISINOPRIL30 MG PO (11:27)
[2021-08-17] MEDS ORDERED: VENT7GM INH (11:27)
[2021-08-17] MEDS ORDERED: HYDR25T PO (11:28)
[2021-08-18] VITALS: BP 149/70
[2021-08-18 06:03] LABS: BUN 8 mg/dl (7-24); CHLORIDE 108 mmol/L (98-107); CREATININE 1.01 mg/dL (0.70-1.30); POTASSIUM 4.2 mmol/L (3.5-5.1); SODIUM 139 mmol/L (136-145)
[2021-08-18 06:27] LABS: BASO % 0.4 % (0.0-1.0); EOS # 0.3 10*3/uL (0.0-0.4); EOS % 3.2 % (1.0-4.0); HEMATOCRIT 39.3 % (42.0-52.0); LYMPH # 1.8 10*3/uL (1.3-4.4); LYMPH % 18.4 % (27.0-41.0); MEAN CELL VOLUME 96.1 fl (80.0-94.0); MEAN CORPUSCULAR HGB 31.5 pg (27.0-31.0); MEAN CORPUSCULAR HGB CONC 32.8 g/dl (33.0-37.0); MEAN PLATELET VOLUME 9.8 fl (9.6-12.3); MONO % 10.4 % (3.0-9.0); NEUT # 6.5 10*3/uL (2.3-7.9); PLATELET COUNT AUTOMATED 166 10*3/uL (130-400); RED BLOOD COUNT 4.09 10*6/uL (4.50-5.90); WHITE BLOOD COUNT 9.9 10*3/uL (4.8-10.8)
[2021-08-18 08:00] VITALS: BP 126/79
[2021-08-18 12:00] VITALS: BP 146/96
[2021-08-18 16:00] VITALS: BP 118/68
[2021-08-18 20:00] VITALS: BP 152/84
[2021-08-19] VITALS: BP 143/74
[2021-08-19 06:18] LABS: BASO % 0.5 % (0.0-1.0); EOS # 0.5 10*3/uL (0.0-0.4); EOS % 6.3 % (1.0-4.0); HEMATOCRIT 38.4 % (42.0-52.0); LYMPH # 1.6 10*3/uL (1.3-4.4); LYMPH % 20.7 % (27.0-41.0); MEAN CELL VOLUME 94.8 fl (80.0-94.0); MEAN CORPUSCULAR HGB 31.4 pg (27.0-31.0); MEAN CORPUSCULAR HGB CONC 33.1 g/dl (33.0-37.0); MEAN PLATELET VOLUME 9.6 fl (9.6-12.3); MONO # 0.7 10*3/uL (0.1-1.0); MONO % 8.5 % (3.0-9.0); NEUT # 4.8 10*3/uL (2.3-7.9); NEUT % 61.9 % (47.0-73.0); PLATELET COUNT AUTOMATED 176 10*3/uL (130-400); RED BLOOD COUNT 4.05 10*6/uL (4.50-5.90); RED CELL DISTRI WIDTH 12.9 % (0-14.5); WHITE BLOOD COUNT 7.8 10*3/uL (4.8-10.8)
[2021-08-19 06:36] LABS: BUN 11 mg/dl (7-24); CHLORIDE 106 mmol/L (98-107); POTASSIUM 3.7 mmol/L (3.5-5.1); SODIUM 139 mmol/L (136-145)
[2021-08-19 06:48] LABS: CREATININE 1.06 mg/dL (0.70-1.30)
[2021-08-19 08:00] VITALS: BP 138/86
[2021-08-19 12:00] VITALS: BP 134/80
[2021-08-19 16:00] VITALS: BP 122/74
[2021-08-19 20:00] VITALS: BP 141/82
[2021-08-20] VITALS: BP 116/64
[2021-08-20 05:54] LABS: BUN 11 mg/dl (7-24); CHLORIDE 109 mmol/L (98-107); CREATININE 1.01 mg/dL (0.70-1.30); POTASSIUM 3.9 mmol/L (3.5-5.1); SODIUM 139 mmol/L (136-145)
[2021-08-20 06:34] LABS: HEMATOCRIT 42.1 % (42.0-52.0); MEAN CELL VOLUME 94.6 fl (80.0-94.0); MEAN CORPUSCULAR HGB 31.7 pg (27.0-31.0); MEAN CORPUSCULAR HGB CONC 33.5 g/dl (33.0-37.0); MEAN PLATELET VOLUME 9.7 fl (9.6-12.3); PLATELET COUNT AUTOMATED 208 10*3/uL (130-400); RED BLOOD COUNT 4.45 10*6/uL (4.50-5.90); RED CELL DISTRI WIDTH 12.9 % (0-14.5); WHITE BLOOD COUNT 7.6 10*3/uL (4.8-10.8)
[2021-08-20 06:38] LABS: MANUAL DIFF REFLEX YES
[2021-08-20 07:57] LABS: BASOPHILS 1 % (0-1); PLATELET SUFFICIENCY NORMAL (NORMAL); POLYCHROMASIA SLIGHT; TOTAL CELLS COUNTED 100 #CELLS
[2021-08-20 08:00] VITALS: BP 129/90
[2021-08-20] MEDS ORDERED: PERCOCET 10-321 EACH PO (11:37)
[2021-08-20] MEDS ORDERED: VIBRAMYCIN HYC100 MG PO (11:39)
[2021-08-20 12:00] VITALS: BP 119/74
== END 2021-08-20 13:00 | disposition home or self-care (01) | DRG 710 ==
LOC: ED 15:12 → EDHOLD 18:03 → 4E 18:03 → EDHOLD 21:39 → EDBEDREQ 21:54 → 4E 22:01
PROVIDERS: Internal Medicine; Student in an Organized Health Care Education/Training Program; ADMIT Emergency Medicine; ATTEND Emergency Medicine
PROC: 0Y950ZZ Drainage of Right Inguinal Region, Open Approach (ICD-10-PCS; principal; 2021-08-17)
DX: A41.9 Sepsis, unspecified organism (principal); L02.214 Cutaneous abscess of groin; R73.9 Hyperglycemia, unspecified; I10 Essential (primary) hypertension; F17.200 Nicotine dependence, unspecified, uncomplicated; Z71.6 Tobacco abuse counseling; K21.9 Gastro-esophageal reflux disease without esophagitis; Z80.0 Family history of malignant neoplasm of digestive organs; Z82.49 Family history of ischemic heart disease and other diseases of the circulatory system; Z79.899 Other long term (current) drug therapy; E44.0 Moderate protein-calorie malnutrition

== ENCOUNTER → 2021-09-10 | Outpatient (CLI) | payer OTHER ==
[~2021-09-10] MED LIST changes: +ARNUITY ELLIPT50 MCG INH; +DOXEPIN HCL10 MG PO; +HYDR25T PO; +LISINOPRIL30 MG PO; +MELATONIN5 M1 PO; +METHOCARBAMOL750 M1 PO; +ROPINIROLE HYDRO1 MG PO; +VENT7GM INH; +VIBRAMYCIN HYC100 MG PO; +VITAMIN D350 MCG PO; +WELLBUTRIN SR150 MG PO
== END | disposition home or self-care (01) ==
LOC: US 11:03
PROVIDERS: ATTEND Family Medicine
DX: S30.1XXA Contusion of abdominal wall, initial encounter (principal); X58.XXXA Exposure to other specified factors, initial encounter; Y93.89 Activity, other specified; Y92.89 Other specified places as the place of occurrence of the external cause; Y99.8 Other external cause status; L02.214 Cutaneous abscess of groin

== ENCOUNTER → 2022-04-07 | Outpatient (CLI) | payer OTHER ==
[2022-04-07 12:03] LABS: BUN 11 mg/dl (9-23); CHLORIDE 96 mmol/L (98-107); CREATININE 1.11 mg/dL (0.70-1.30); POTASSIUM 3.6 mmol/L (3.4-5.1)
== END | disposition home or self-care (01) ==
LOC: LAB 11:00
PROVIDERS: Family Medicine; ATTEND Internal Medicine Critical Care Medicine
DX: J45.20 Mild intermittent asthma, uncomplicated (principal); G25.81 Restless legs syndrome; G47.33 Obstructive sleep apnea (adult) (pediatric); Z87.891 Personal history of nicotine dependence

== ENCOUNTER 2022-06-08 15:58 | Emergency (ER) | payer OTHER ==
[~2022-06-08] VITALS: Ht 170.1 cm; Wt 99.3 kg
[2022-06-08 16:04] VITALS: BP 143/66
[2022-06-08] MEDS ORDERED: PREDNISONE20 M1 PO (22:11)
== END 2022-06-08 22:38 | disposition home or self-care (01) ==
LOC: ED 15:58
DX: S70.01XA Contusion of right hip, initial encounter (principal); I10 Essential (primary) hypertension; K21.9 Gastro-esophageal reflux disease without esophagitis; Z98.890 Other specified postprocedural states; W01.0XXA Fall on same level from slipping, tripping and stumbling without subsequent striking against object, initial encounter; Y93.89 Activity, other specified; Y92.89 Other specified places as the place of occurrence of the external cause; Y99.8 Other external cause status

== ENCOUNTER 2022-07-21 13:16 | Emergency (ER) | payer OTHER | END 2022-07-21 14:10 | disposition left against medical advice (07) | LOC: ED 13:16 | DX: Z76.5 Malingerer [conscious simulation] (principal); I10 Essential (primary) hypertension; K21.9 Gastro-esophageal reflux disease without esophagitis; Z87.891 Personal history of nicotine dependence; F14.10 Cocaine abuse, uncomplicated; Z98.890 Other specified postprocedural states ==

== ENCOUNTER → 2022-07-21 | Outpatient (CLI) | payer OTHER | END | disposition home or self-care (01) | LOC: MRI 12:20 | PROVIDERS: ATTEND Anesthesiology | DX: M51.16 Intervertebral disc disorders with radiculopathy, lumbar region (principal); M47.26 Other spondylosis with radiculopathy, lumbar region; M51.27 Other intervertebral disc displacement, lumbosacral region; M48.07 Spinal stenosis, lumbosacral region ==

== ENCOUNTER 2023-01-16 15:37 | Emergency (ER) | payer OTHER ==
[~2023-01-16] VITALS: Ht 170.1 cm; Wt 104.8 kg
[2023-01-16 16:14] VITALS: BP 153/79
[2023-01-16 16:23] LABS: BASO % 0.3 % (0.0-1.0); EOS # 0.3 10*3/uL (0.0-0.4); EOS % 2.9 % (1.0-4.0); HEMATOCRIT 45.7 % (42.0-52.0); LYMPH # 2.3 10*3/uL (1.3-4.4); LYMPH % 24.9 % (27.0-41.0); MEAN CELL VOLUME 93.8 fl (80.0-94.0); MEAN CORPUSCULAR HGB 32.2 pg (27.0-31.0); MEAN CORPUSCULAR HGB CONC 34.4 g/dl (33.0-37.0); MEAN PLATELET VOLUME 9.5 fl (9.6-12.3); MONO # 0.5 10*3/uL (0.1-1.0); MONO % 5.1 % (3.0-9.0); NEUT # 6.1 10*3/uL (2.3-7.9); NEUT % 65.4 % (47.0-73.0); PLATELET COUNT AUTOMATED 189 10*3/uL (130-400); RED BLOOD COUNT 4.87 10*6/uL (4.50-5.90); WHITE BLOOD COUNT 9.4 10*3/uL (4.8-10.8)
[2023-01-16] MEDS ORDERED: PREGABALIN75 MG PO (16:26)
[2023-01-16] MEDS ORDERED: DIAZEPAM10 M1 PO (16:43)
[2023-01-16 16:44] LABS: ALKALINE PHOSPHATASE 101 U/L (46-116); BUN 11 mg/dl (9-23); CHLORIDE 101 mmol/L (98-107); POTASSIUM 3.3 mmol/L (3.4-5.1); SGPT/ALT 22 U/L (10-49)
[2023-01-16] MEDS ORDERED: AMOX-CLAV 875-1 EACH PO (17:10)
== END 2023-01-16 17:24 | disposition home or self-care (01) ==
LOC: ED 15:37
PROVIDERS: Nurse Practitioner Family
DX: I88.9 Nonspecific lymphadenitis, unspecified (principal); R73.9 Hyperglycemia, unspecified; F41.9 Anxiety disorder, unspecified; J44.9 Chronic obstructive pulmonary disease, unspecified; K21.9 Gastro-esophageal reflux disease without esophagitis; I10 Essential (primary) hypertension; F32.A Depression, unspecified; F17.290 Nicotine dependence, other tobacco product, uncomplicated

== ENCOUNTER 2023-03-22 19:10 | Emergency (ER) | payer OTHER ==
[~2023-03-22] VITALS: Ht 170.1 cm; Wt 131.5 kg
[~2023-03-22 19:10] MED LIST changes: +AMOX-CLAV 875-1 EACH PO; +DIAZEPAM10 M1 PO; +PREGABALIN75 MG PO
[2023-03-22 19:50] VITALS: BP 145/80
== END 2023-03-22 23:14 | disposition left against medical advice (07) ==
LOC: ED 19:10
DX: M54.50 Low back pain, unspecified (principal); I10 Essential (primary) hypertension; K21.9 Gastro-esophageal reflux disease without esophagitis; Z53.29 Procedure and treatment not carried out because of patient's decision for other reasons; Z98.890 Other specified postprocedural states; F17.200 Nicotine dependence, unspecified, uncomplicated

== ENCOUNTER 2023-08-29 03:32 | Emergency (ER) | payer OTHER ==
[~2023-08-29] VITALS: Ht 170.1 cm; Wt 104.3 kg
[~2023-08-29 03:32] MED LIST changes: +ACETAMINOPHEN500 M4 PO; +BENZONATATE200 MG PO; +BROMPHENIR-PSE118 ML PO; +CLARITIN10 MG PO; +LASIX20 MG PO; +LIPITOR10 MG PO; +LOPRESSOR25 MG PO; +METHYLPREDNISONE4 MG PO; +OXYCODON-ACETA1 EACH PO; +OXYCODONE HCL10 M1 PO; +TOPCARE PAIN R500 MG PO; +VARENICLINE TA0.5 MG PO; +VARENICLINE TART1 MG PO
[2023-08-29 03:50] VITALS: BP 125/80
[2023-08-29] MEDS ORDERED: MEPERIDINE HYDROCHLORIDE 25 MG/1 ML VIAL IM ONE (03:50)
[2023-08-29] MEDS ORDERED: Promethazine Hydrochloride 25 MG/ML VIAL IM ONE (03:50)
== END 2023-08-29 04:14 | disposition home or self-care (01) ==
LOC: ED 03:32
DX: G89.29 Other chronic pain (principal); M25.551 Pain in right hip; R10.31 Right lower quadrant pain; I10 Essential (primary) hypertension; K21.9 Gastro-esophageal reflux disease without esophagitis; F14.10 Cocaine abuse, uncomplicated; Z98.890 Other specified postprocedural states; Z87.891 Personal history of nicotine dependence

== ENCOUNTER 2023-10-01 13:18 | Emergency (ER) | payer OTHER ==
[~2023-10-01] VITALS: Ht 170.1 cm; Wt 106.6 kg
[2023-10-01 14:35] VITALS: BP 150/83
== END 2023-10-01 19:22 | disposition left against medical advice (07) ==
LOC: ED 13:18
DX: M25.551 Pain in right hip (principal); M54.50 Low back pain, unspecified; R10.30 Lower abdominal pain, unspecified; Z53.21 Procedure and treatment not carried out due to patient leaving prior to being seen by health care provider

== ENCOUNTER 2023-10-03 09:30 | Emergency (ER) | payer OTHER ==
[~2023-10-03] VITALS: Ht 172.7 cm; Wt 106.1 kg
[2023-10-03 09:43] VITALS: BP 128/91
[2023-10-03] MEDS ORDERED: MAGNESIUM SULFATE 50 ML IV ONE (10:15)
[2023-10-03] MEDS ORDERED: Albuterol Sulfate 2.5 MG/3 ML VIAL NEB ONE (10:15)
[2023-10-03] MEDS ORDERED: Acetaminophen/Oxycodone 5 MG/325 MG TABLET PO ONE (10:15)
[2023-10-03] MEDS ORDERED: methylPREDNISolone sod succ 125 MG VIAL IV ONE (10:15)
[2023-10-03 10:45] LABS: BASO % 0.4 % (0.0-1.0); EOS # 0.2 10*3/uL (0.0-0.4); EOS % 2.6 % (1.0-4.0); HEMATOCRIT 41.8 % (42.0-52.0); LYMPH # 1.7 10*3/uL (1.3-4.4); LYMPH % 23.7 % (27.0-41.0); MEAN CELL VOLUME 94.8 fl (80.0-94.0); MEAN CORPUSCULAR HGB 32.2 pg (27.0-31.0); MEAN PLATELET VOLUME 9.7 fl (9.6-12.3); MONO # 0.6 10*3/uL (0.1-1.0); MONO % 7.7 % (3.0-9.0); NEUT # 4.7 10*3/uL (2.3-7.9); NEUT % 64.6 % (47.0-73.0); PLATELET COUNT AUTOMATED 186 10*3/uL (130-400); RED BLOOD COUNT 4.41 10*6/uL (4.50-5.90); RED CELL DISTRI WIDTH 13.4 % (0-14.5); WHITE BLOOD COUNT 7.3 10*3/uL (4.8-10.8)
[2023-10-03 11:05] LABS: ALKALINE PHOSPHATASE 93 U/L (46-116); BUN 13 mg/dl (9-23); CHLORIDE 100 mmol/L (98-107); POTASSIUM 3.2 mmol/L (3.4-5.1); SGPT/ALT 17 U/L (5-49); TOTAL PROTEIN 6.9 gm/dL (6.0-8.0)
[2023-10-03] MEDS ORDERED: POTASSIUM CHLORIDE 20 MEQ TAB PO ONE (11:10)
== END 2023-10-03 11:20 | disposition home or self-care (01) ==
LOC: ED 09:30
PROVIDERS: Emergency Medicine
DX: M16.11 Unilateral primary osteoarthritis, right hip (principal); I10 Essential (primary) hypertension; K21.9 Gastro-esophageal reflux disease without esophagitis; F14.10 Cocaine abuse, uncomplicated; Z98.890 Other specified postprocedural states; Z87.891 Personal history of nicotine dependence

== ENCOUNTER 2023-10-06 10:49 | Emergency (ER) | payer OTHER ==
[~2023-10-06] VITALS: Ht 170.1 cm; Wt 106.6 kg
[2023-10-06 10:54] VITALS: BP 132/67
[2023-10-06] MEDS ORDERED: Ketorolac Tromethamine 30 MG/ML VIAL IM ONE (12:40)
[2023-10-06 12:45] LABS: BILIRUBIN Negative (Negative); BLOOD Negative (Negative); CLARITY Clear (Clear); COLOR Yellow (Yellow); GLUCOSE Negative (Negative); KETONE Negative (Negative); LEUKO ESTERASE Negative (Negative); NITRITE Negative (Negative); PH 5.5 (4.5-8.0); SPECIFIC GRAVITY 1.015 (1.001-1.030)
[2023-10-06 12:55] LABS: BACTERIA TRACE; EPITHELIAL CELLS 0-2; HYALINE CAST 41-50; RBC 0-2 rbc/hpf (0-2)
== END 2023-10-06 13:36 | disposition home or self-care (01) ==
LOC: ED 10:49
PROVIDERS: Emergency Medicine
DX: G89.29 Other chronic pain (principal); R10.31 Right lower quadrant pain; I10 Essential (primary) hypertension; K21.9 Gastro-esophageal reflux disease without esophagitis; F14.10 Cocaine abuse, uncomplicated; Z98.890 Other specified postprocedural states; Z87.891 Personal history of nicotine dependence

== ENCOUNTER 2023-10-15 14:03 | Emergency (ER) | payer OTHER ==
[~2023-10-15] VITALS: Ht 170.1 cm; Wt 106.1 kg
[2023-10-15 14:24] VITALS: BP 124/69
[2023-10-15] MEDS ORDERED: CIPROFLOX-DEXA7.5 ML OT (15:29)
[2023-10-15] MEDS ORDERED: NAPROSYN500 MG PO (15:30)
[2023-10-15] MEDS ORDERED: Acetaminophen/Hydrocodone 5 MG/325 MG TABLET PO ONE (15:35)
[2023-10-15] MEDS ORDERED: Amoxicillin/Clavulanate Pota 875 MG TAB PO ONE (15:35)
== END 2023-10-15 15:42 | disposition home or self-care (01) ==
LOC: ED 14:03
DX: H66.91 Otitis media, unspecified, right ear (principal); H60.91 Unspecified otitis externa, right ear; R73.9 Hyperglycemia, unspecified; E83.42 Hypomagnesemia; E87.1 Hypo-osmolality and hyponatremia; M19.90 Unspecified osteoarthritis, unspecified site; J44.9 Chronic obstructive pulmonary disease, unspecified; K21.9 Gastro-esophageal reflux disease without esophagitis; I10 Essential (primary) hypertension; F41.9 Anxiety disorder, unspecified; E78.5 Hyperlipidemia, unspecified; F14.10 Cocaine abuse, uncomplicated; Z98.890 Other specified postprocedural states; Z87.891 Personal history of nicotine dependence

== ENCOUNTER 2023-11-12 13:28 | Emergency (ER) | payer OTHER ==
[~2023-11-12] VITALS: Ht 170.1 cm; Wt 106.6 kg
[~2023-11-12 13:28] MED LIST changes: +CIPROFLOX-DEXA7.5 ML OT; +NAPROSYN500 MG PO
[2023-11-12 13:41] VITALS: BP 152/85
[2023-11-12] MEDS ORDERED: VARENICLINE TART1 MG PO ×2 (13:43→14:09)
[2023-11-12] MEDS ORDERED: MINIPRESS2 M1 PO (13:44)
[2023-11-12] MEDS ORDERED: ROPINIROLE HYDRO2 M2 PO ×2 (13:45→14:09)
[2023-11-12] MEDS ORDERED: PERCOCET 10-321 EACH PO (13:46)
[2023-11-12] MEDS ORDERED: Acetaminophen/Oxycodone Hydr 7.5 MG/325 MG TABLET PO ONE (14:00)
[2023-11-12] MEDS ORDERED: LYRICA75 M1 PO (14:09)
[2023-11-12] MEDS ORDERED: PRAZOSIN HCL2 MG PO (14:09)
== END 2023-11-12 14:34 | disposition home or self-care (01) ==
LOC: ED 13:28
DX: R10.31 Right lower quadrant pain (principal); J44.9 Chronic obstructive pulmonary disease, unspecified; I10 Essential (primary) hypertension; E78.5 Hyperlipidemia, unspecified; F32.A Depression, unspecified; F41.9 Anxiety disorder, unspecified; K21.9 Gastro-esophageal reflux disease without esophagitis; F14.10 Cocaine abuse, uncomplicated; F17.290 Nicotine dependence, other tobacco product, uncomplicated; Z98.890 Other specified postprocedural states

== ENCOUNTER 2023-12-05 14:26 | Emergency (ER) | payer OTHER ==
[~2023-12-05] VITALS: Ht 170.1 cm; Wt 103.4 kg
[~2023-12-05 14:26] MED LIST changes: +LYRICA75 M1 PO; +MINIPRESS2 M1 PO; +PRAZOSIN HCL2 MG PO; +ROPINIROLE HYDRO2 M2 PO
[2023-12-05 14:42] VITALS: BP 121/91
[2023-12-05] MEDS ORDERED: Acetaminophen/Oxycodone 5 MG/325 MG TABLET PO ONE (14:55)
[2023-12-05] MEDS ORDERED: Promethazine Hydrochloride 25 MG/ML VIAL IM ONE (14:55)
[2023-12-05] MEDS ORDERED: MEPERIDINE HYDROCHLORIDE 25 MG/1 ML VIAL IM ONE (14:55)
== END 2023-12-05 15:12 | disposition home or self-care (01) ==
LOC: ED 14:26
DX: G89.29 Other chronic pain (principal); M79.604 Pain in right leg; M79.605 Pain in left leg; I10 Essential (primary) hypertension; K21.9 Gastro-esophageal reflux disease without esophagitis; F14.10 Cocaine abuse, uncomplicated; Z98.890 Other specified postprocedural states; Z87.891 Personal history of nicotine dependence

== ENCOUNTER 2023-12-18 11:32 | Emergency (ER) | payer OTHER ==
[~2023-12-18] VITALS: Ht 170.1 cm; Wt 103.4 kg
[2023-12-18 12:02] VITALS: BP 90/60
[2023-12-18] MEDS ORDERED: PREDNISONE50 MG PO (12:19)
[2023-12-18] MEDS ORDERED: methylPREDNISolone sod succ 125 MG VIAL IM ONE (12:20)
[2023-12-18] MEDS ORDERED: Acetaminophen/Hydrocodone HP 10/325 PO ONE (12:20)
== END 2023-12-18 13:07 | disposition home or self-care (01) ==
LOC: ED 11:32
DX: M25.551 Pain in right hip (principal); M54.2 Cervicalgia; I10 Essential (primary) hypertension; K21.9 Gastro-esophageal reflux disease without esophagitis; F14.10 Cocaine abuse, uncomplicated; Z98.890 Other specified postprocedural states; Z87.891 Personal history of nicotine dependence

== ENCOUNTER → 2023-12-22 | Day surgery (SDC) | payer OTHER ==
[~2023-12-22] MED LIST changes: +BUPIVACAINE 0.25% 10 ML VIAL IJ ONE; +BUPIVACAINE 0.25% 10 ML VIAL ONE; +Betamethasone ACE/Betamethas 30 MG/5 ML VIAL IJ ONE; +Lidocaine Hydrochloride 30 ML VIAL ONE; +Lidocaine Hydrochloride 5 ML AMP IJ ONE; +PERCOCET 5-3251 EACH PO; +PREDNISONE50 MG PO
[2023-12-22 11:17] VITALS: BP 121/85
[2023-12-22 11:30] VITALS: BP 152/87
[2023-12-22 11:33] VITALS: BP 159/100
[2023-12-22 11:36] VITALS: BP 144/86
[2023-12-22 11:51] VITALS: BP 129/81
== END | disposition home or self-care (01) ==
LOC: SDC 12-19 08:00
PROVIDERS: ATTEND Orthopaedic Surgery
DX: M16.12 Unilateral primary osteoarthritis, left hip (principal); I10 Essential (primary) hypertension; J44.1 Chronic obstructive pulmonary disease with (acute) exacerbation; K21.9 Gastro-esophageal reflux disease without esophagitis; F41.9 Anxiety disorder, unspecified; G47.30 Sleep apnea, unspecified; F10.90 Alcohol use, unspecified, uncomplicated; F12.90 Cannabis use, unspecified, uncomplicated; Z98.890 Other specified postprocedural states; Z87.891 Personal history of nicotine dependence; Z79.899 Other long term (current) drug therapy; Z83.3 Family history of diabetes mellitus; Z82.49 Family history of ischemic heart disease and other diseases of the circulatory system

== ENCOUNTER 2023-12-25 12:36 | Emergency (ER) | payer OTHER ==
[~2023-12-25] VITALS: Ht 170.1 cm; Wt 99.8 kg
[~2023-12-25 12:36] MED LIST changes: -BUPIVACAINE 0.25% 10 ML VIAL IJ ONE; -BUPIVACAINE 0.25% 10 ML VIAL ONE; -Betamethasone ACE/Betamethas 30 MG/5 ML VIAL IJ ONE; -Lidocaine Hydrochloride 30 ML VIAL ONE; -Lidocaine Hydrochloride 5 ML AMP IJ ONE; -PERCOCET 5-3251 EACH PO
[2023-12-25 13:06] VITALS: BP 139/74
[2023-12-25] MEDS ORDERED: PERCOCET 5-3251 EACH PO (13:24)
[2023-12-25] MEDS ORDERED: MORPHINE Sulfate 2 MG/ML SYR IM ONE (13:25)
== END 2023-12-25 13:39 | disposition home or self-care (01) ==
LOC: ED 12:36
DX: M54.50 Low back pain, unspecified (principal); M25.552 Pain in left hip; M25.551 Pain in right hip; I10 Essential (primary) hypertension; K21.9 Gastro-esophageal reflux disease without esophagitis; F14.10 Cocaine abuse, uncomplicated; Z98.890 Other specified postprocedural states; Z87.891 Personal history of nicotine dependence

== ENCOUNTER 2023-12-28 11:00 | Emergency (ER) | payer OTHER ==
[~2023-12-28] VITALS: Ht 170.1 cm; Wt 97.5 kg
[~2023-12-28 11:00] MED LIST changes: +PERCOCET 5-3251 EACH PO
[2023-12-28 11:16] VITALS: BP 135/95
== END 2023-12-28 12:08 | disposition left against medical advice (07) ==
LOC: ED 11:00
DX: M54.50 Low back pain, unspecified (principal); M25.559 Pain in unspecified hip; J44.9 Chronic obstructive pulmonary disease, unspecified; K21.9 Gastro-esophageal reflux disease without esophagitis; F41.9 Anxiety disorder, unspecified; I10 Essential (primary) hypertension; E78.5 Hyperlipidemia, unspecified; E83.42 Hypomagnesemia; E87.1 Hypo-osmolality and hyponatremia; F14.10 Cocaine abuse, uncomplicated; Z98.890 Other specified postprocedural states; Z87.891 Personal history of nicotine dependence; Z53.29 Procedure and treatment not carried out because of patient's decision for other reasons

== ENCOUNTER 2024-01-18 13:00 | Emergency (ER) | payer OTHER ==
[~2024-01-18] VITALS: Wt 99.8 kg
[2024-01-18 13:19] VITALS: BP 145/85
[2024-01-18] MEDS ORDERED: Acetaminophen/Oxycodone 5 MG/325 MG TABLET PO ONE (14:50)
== END 2024-01-18 16:55 | disposition left against medical advice (07) ==
LOC: ED 13:00
DX: M25.572 Pain in left ankle and joints of left foot (principal); M54.50 Low back pain, unspecified; G89.29 Other chronic pain; Z79.899 Other long term (current) drug therapy; Z87.891 Personal history of nicotine dependence; Z98.890 Other specified postprocedural states; Z53.29 Procedure and treatment not carried out because of patient's decision for other reasons; W18.39XA Other fall on same level, initial encounter; Y93.89 Activity, other specified; Y92.89 Other specified places as the place of occurrence of the external cause; Y99.0 Civilian activity done for income or pay

== ENCOUNTER → 2024-01-30 | Outpatient (CLI) | payer OTHER ==
[2024-01-30 10:29] LABS: BASO % 0.3 % (0.0-1.0); EOS # 0.2 10*3/uL (0.0-0.4); EOS % 3.3 % (1.0-4.0); HEMATOCRIT 42.8 % (42.0-52.0); LYMPH # 2.6 10*3/uL (1.3-4.4); LYMPH % 40.4 % (27.0-41.0); MEAN CELL VOLUME 95.3 fl (80.0-94.0); MEAN CORPUSCULAR HGB 31.2 pg (27.0-31.0); MEAN CORPUSCULAR HGB CONC 32.7 g/dl (33.0-37.0); MEAN PLATELET VOLUME 9.9 fl (9.6-12.3); MONO # 0.5 10*3/uL (0.1-1.0); MONO % 7.6 % (3.0-9.0); NEUT # 3.1 10*3/uL (2.3-7.9); NEUT % 47.2 % (47.0-73.0); PLATELET COUNT AUTOMATED 184 10*3/uL (130-400); RED BLOOD COUNT 4.49 10*6/uL (4.50-5.90); WHITE BLOOD COUNT 6.5 10*3/uL (4.8-10.8)
[2024-01-30 11:00] LABS: ALKALINE PHOSPHATASE 91 U/L (46-116); BUN 8 mg/dl (9-23); CHLORIDE 104 mmol/L (98-107); CHOLESTEROL 150 mg/dL (<200); LDL CHOLESTEROL 52 mg/dL (9-159); POTASSIUM 4.2 mmol/L (3.4-5.1); SGPT/ALT 17 U/L (5-49); TOTAL PROTEIN 7.1 gm/dL (6.0-8.0); TRIGLYCERIDES 204 mg/dl (<150)
[2024-01-30 11:20] LABS: VITAMIN D, 25-HYDROXY 53.6 ng/mL (30-100)
[2024-01-30 16:33] LABS: BILIRUBIN Negative (Negative); BLOOD Negative (Negative); CLARITY Clear (Clear); COLOR Yellow (Yellow); GLUCOSE Negative (Negative); KETONE Negative (Negative); LEUKO ESTERASE 1+ (Negative); NITRITE Negative (Negative); PH 5.5 (4.5-8.0); SPECIFIC GRAVITY <= 1.005 (1.001-1.030); UROBILINOGEN 0.2 E.U./dl (0.0-1.0)
[2024-01-30 16:43] LABS: BACTERIA 1+; RBC 0-2 rbc/hpf (0-2); WBC 16-20 wbc/hpf (0-5)
== END | disposition home or self-care (01) ==
LOC: LAB 09:04
PROVIDERS: ATTEND Nurse Practitioner
DX: Z13.29 Encounter for screening for other suspected endocrine disorder (principal); I10 Essential (primary) hypertension; E78.01 Familial hypercholesterolemia; E55.9 Vitamin D deficiency, unspecified; E53.8 Deficiency of other specified B group vitamins; D64.9 Anemia, unspecified

== ENCOUNTER 2024-04-05 02:28 | Emergency (ER) | payer OTHER ==
[~2024-04-05] VITALS: Ht 172.7 cm; Wt 99.8 kg
[2024-04-05] MEDS ORDERED: OXYCODONE-ACET1 EAC2 PO (02:35)
[2024-04-05] MEDS ORDERED: Promethazine Hydrochloride 25 MG/ML VIAL IM ONE (02:45)
[2024-04-05] MEDS ORDERED: MEPERIDINE HYDROCHLORIDE 25 MG/1 ML VIAL IM ONE (02:45)
[2024-04-05 02:57] VITALS: BP 152/98
== END 2024-04-05 02:55 | disposition home or self-care (01) ==
LOC: ED 02:28
DX: G89.29 Other chronic pain (principal); M25.572 Pain in left ankle and joints of left foot; M54.50 Low back pain, unspecified; M54.2 Cervicalgia; I10 Essential (primary) hypertension; K21.9 Gastro-esophageal reflux disease without esophagitis; F14.10 Cocaine abuse, uncomplicated; F12.90 Cannabis use, unspecified, uncomplicated; Z98.890 Other specified postprocedural states; Z87.891 Personal history of nicotine dependence

== ENCOUNTER 2024-04-07 10:24 | Emergency (ER) | payer OTHER ==
[~2024-04-07] VITALS: Ht 170.1 cm; Wt 102.2 kg
[~2024-04-07 10:24] MED LIST changes: +OXYCODONE-ACET1 EAC2 PO
[2024-04-07 10:34] VITALS: BP 166/94
[2024-04-07] MEDS ORDERED: MORPHINE Sulfate 2 MG/ML SYR IM ONE (10:55)
[2024-04-07] MEDS ORDERED: Acetaminophen/Oxycodone 5 MG/325 MG TABLET PO ONE (10:55)
== END 2024-04-07 10:56 | disposition home or self-care (01) ==
LOC: ED 10:24
DX: G89.29 Other chronic pain (principal); M54.50 Low back pain, unspecified; I10 Essential (primary) hypertension; K21.9 Gastro-esophageal reflux disease without esophagitis; F14.10 Cocaine abuse, uncomplicated; Z98.890 Other specified postprocedural states; Z87.891 Personal history of nicotine dependence

== ENCOUNTER 2024-04-08 15:32 | Emergency (ER) | payer OTHER ==
[~2024-04-08] VITALS: Ht 170.1 cm; Wt 99.8 kg
[2024-04-08 15:43] VITALS: BP 113/57
== END 2024-04-08 15:54 | disposition left against medical advice (07) ==
LOC: ED 15:32
DX: M54.50 Low back pain, unspecified (principal); Z53.29 Procedure and treatment not carried out because of patient's decision for other reasons; I10 Essential (primary) hypertension; K21.9 Gastro-esophageal reflux disease without esophagitis; F14.10 Cocaine abuse, uncomplicated; Z87.891 Personal history of nicotine dependence; Z98.890 Other specified postprocedural states

== ENCOUNTER 2024-04-20 10:53 | Emergency (ER) | payer OTHER ==
[~2024-04-20] VITALS: Ht 170.1 cm; Wt 101.0 kg
[2024-04-20 11:11] VITALS: BP 158/77
[2024-04-20] MEDS ORDERED: MORPHINE Sulfate 2 MG/ML SYR IM ONE (12:10)
== END 2024-04-20 12:32 | disposition home or self-care (01) ==
LOC: ED 10:53
DX: M54.50 Low back pain, unspecified (principal); I10 Essential (primary) hypertension; K21.9 Gastro-esophageal reflux disease without esophagitis; F14.10 Cocaine abuse, uncomplicated; F12.90 Cannabis use, unspecified, uncomplicated; Z87.891 Personal history of nicotine dependence; Z98.890 Other specified postprocedural states

== ENCOUNTER 2024-04-21 19:00 | Emergency (ER) | payer OTHER ==
[~2024-04-21] VITALS: Ht 170.1 cm; Wt 99.8 kg
[2024-04-21 19:14] VITALS: BP 138/62
[2024-04-21] MEDS ORDERED: Ketorolac Tromethamine 60 MG/2 ML VIAL IM ONE (19:20)
[2024-04-21] MEDS ORDERED: Dexamethasone Sodium Phospha 20 MG/5 ML VIAL IM ONE (19:20)
== END 2024-04-21 19:36 | disposition home or self-care (01) ==
LOC: ED 19:00
DX: M54.50 Low back pain, unspecified (principal); I10 Essential (primary) hypertension; K21.9 Gastro-esophageal reflux disease without esophagitis; Z98.890 Other specified postprocedural states; Z87.891 Personal history of nicotine dependence

== ENCOUNTER 2024-05-22 19:42 | Emergency (ER) | payer OTHER ==
[~2024-05-22] VITALS: Ht 170.1 cm; Wt 104.3 kg
[2024-05-22 19:56] VITALS: BP 129/71
[2024-05-22] MEDS ORDERED: TIZANIDINE HCL4 MG PO (20:01)
[2024-05-22] MEDS ORDERED: MELOXICAM15 MG PO (20:01)
[2024-05-22] MEDS ORDERED: METHOCARBAMOL750 M1 PO (21:10)
[2024-05-22] MEDS ORDERED: MEPERIDINE HYDROCHLORIDE 25 MG/1 ML VIAL IM ONE (21:10)
[2024-05-22] MEDS ORDERED: Promethazine Hydrochloride 25 MG/ML VIAL IM ONE (21:10)
== END 2024-05-22 21:49 | disposition home or self-care (01) ==
LOC: ED 19:42
DX: M25.512 Pain in left shoulder (principal); Z79.899 Other long term (current) drug therapy; Z98.890 Other specified postprocedural states; Z87.891 Personal history of nicotine dependence

== ENCOUNTER → 2024-06-06 | Outpatient (CLI) | payer OTHER ==
[~2024-06-06] MED LIST changes: +AVPAK AZITHROM250 M1 PO; +BENZONATATE100 M1 PO; +MELOXICAM15 MG PO; +TIZANIDINE HCL4 MG PO
== END | disposition home or self-care (01) ==
LOC: RAD 10:55
PROVIDERS: ATTEND Internal Medicine
DX: R05.9 Cough, unspecified (principal)

== ENCOUNTER 2024-06-09 13:51 | Emergency (ER) | payer OTHER ==
[~2024-06-09] VITALS: Wt 104.3 kg
[~2024-06-09 13:51] MED LIST changes: -AVPAK AZITHROM250 M1 PO; -BENZONATATE100 M1 PO
[2024-06-09 14:01] VITALS: BP 124/83
[2024-06-09] MEDS ORDERED: MORPHINE Sulfate 2 MG/ML SYR IM ONE (14:10)
[2024-06-09] MEDS ORDERED: AVPAK AZITHROM250 M1 PO (14:13)
[2024-06-09] MEDS ORDERED: BENZONATATE100 M1 PO (14:13)
== END 2024-06-09 14:25 | disposition home or self-care (01) ==
LOC: ED 13:51
DX: J40 Bronchitis, not specified as acute or chronic (principal); M54.50 Low back pain, unspecified; I10 Essential (primary) hypertension; K21.9 Gastro-esophageal reflux disease without esophagitis; F14.10 Cocaine abuse, uncomplicated; Z98.890 Other specified postprocedural states; Z87.891 Personal history of nicotine dependence

== ENCOUNTER 2024-06-18 13:47 | Emergency (ER) | payer OTHER ==
[~2024-06-18] VITALS: Ht 170.1 cm; Wt 102.1 kg
[~2024-06-18 13:47] MED LIST changes: +AVPAK AZITHROM250 M1 PO; +BENZONATATE100 M1 PO
[2024-06-18 13:51] VITALS: BP 100/71
[2024-06-18] MEDS ORDERED: Dexamethasone Sodium Phospha 20 MG/5 ML VIAL IM ONE (14:15)
== END 2024-06-18 14:27 | disposition home or self-care (01) ==
LOC: ED 13:47
DX: G89.29 Other chronic pain (principal); M54.6 Pain in thoracic spine; Z98.890 Other specified postprocedural states; Z87.891 Personal history of nicotine dependence; I10 Essential (primary) hypertension; K21.9 Gastro-esophageal reflux disease without esophagitis; F14.10 Cocaine abuse, uncomplicated

== ENCOUNTER → 2024-08-14 | Outpatient (CLI) | payer OTHER | END | disposition home or self-care (01) | LOC: CT 08-09 13:00 | PROVIDERS: ATTEND Podiatrist | DX: M19.072 Primary osteoarthritis, left ankle and foot (principal); M85.872 Other specified disorders of bone density and structure, left ankle and foot; M25.775 Osteophyte, left foot; M79.89 Other specified soft tissue disorders; M19.172 Post-traumatic osteoarthritis, left ankle and foot ==

== ENCOUNTER 2024-11-07 17:07 | Emergency (ER) | payer OTHER ==
[~2024-11-07] VITALS: Ht 170.1 cm; Wt 104.3 kg
[2024-11-07 17:17] VITALS: BP 151/73
[2024-11-07] MEDS ORDERED: OXYCODONE HCL (IR) 10 MG TABLET PO ONE (17:45)
== END 2024-11-07 18:16 | disposition home or self-care (01) ==
LOC: ED 17:07
DX: G89.29 Other chronic pain (principal); Z79.899 Other long term (current) drug therapy; Z98.890 Other specified postprocedural states; Z87.891 Personal history of nicotine dependence

== ENCOUNTER → 2024-11-20 | Outpatient (CLI) | payer OTHER ==
[2024-11-20 13:38] LABS: ACT PARTIAL THROMBO TIME 21.7 SECONDS (20.0-32.1)
[2024-11-20 14:00] LABS: BUN 10 mg/dl (9-23); LDL CHOLESTEROL 87 mg/dL (9-159); SGPT/ALT 17 U/L (5-49)
== END | disposition home or self-care (01) ==
LOC: LAB 12:53
PROVIDERS: ATTEND Family Medicine
DX: Z01.818 Encounter for other preprocedural examination (principal); Z13.220 Encounter for screening for lipoid disorders

== ENCOUNTER → 2024-11-27 | Outpatient (CLI) | payer OTHER ==
[2024-11-27 11:21] LABS: BASO # 0.0 10*3/uL (0.0-0.1); BASO % 0.4 % (0.0-1.0); EOS # 0.3 10*3/uL (0.0-0.4); EOS % 4.4 % (1.0-4.0); MEAN CELL VOLUME 95.1 fl (80.0-94.0); MEAN CORPUSCULAR HGB 31.2 pg (27.0-31.0); MEAN PLATELET VOLUME 9.4 fl (9.6-12.3); MONO # 0.6 10*3/uL (0.1-1.0); MONO % 7.8 % (3.0-9.0); NEUT # 4.5 10*3/uL (2.3-7.9); NEUT % 57.8 % (47.0-73.0); NUCLEATED RED BLOOD CELL 0.0 % (0.0-0.0); NUCLEATED RED BLOOD CELL 0.0 10*3/uL (0.0-0.0); PLATELET COUNT AUTOMATED 189 10*3/uL (130-400); RED CELL DISTRI WIDTH 13.0 % (0-14.5)
== END | disposition home or self-care (01) ==
LOC: LAB 11:07
PROVIDERS: ATTEND Family Medicine
DX: Z01.812 Encounter for preprocedural laboratory examination (principal); Z13.220 Encounter for screening for lipoid disorders; Z79.899 Other long term (current) drug therapy

== ENCOUNTER 2025-01-03 10:58 | Emergency (ER) | payer OTHER ==
[~2025-01-03] VITALS: Ht 170.1 cm; Wt 59.0 kg
[2025-01-03 11:03] VITALS: BP 159/78
[2025-01-03] MEDS ORDERED: Ondansetron Hydrochloride 4 MG/2 ML VIAL IV ONE (11:05)
[2025-01-03] MEDS ORDERED: SODIUM CHLORIDE 0.9% 1,000 ML IV ONE (11:05)
[2025-01-03 11:22] LABS: BASO # 0.0 10*3/uL (0.0-0.1); BASO % 0.2 % (0.0-1.0); EOS # 0.2 10*3/uL (0.0-0.4); EOS % 2.6 % (1.0-4.0); MEAN CELL VOLUME 92.6 fl (80.0-94.0); MEAN CORPUSCULAR HGB 30.2 pg (27.0-31.0); MEAN PLATELET VOLUME 9.9 fl (9.6-12.3); MONO # 0.5 10*3/uL (0.1-1.0); MONO % 6.5 % (3.0-9.0); NEUT # 5.1 10*3/uL (2.3-7.9); NEUT % 63.7 % (47.0-73.0); NUCLEATED RED BLOOD CELL 0.0 % (0.0-0.0); NUCLEATED RED BLOOD CELL 0.0 10*3/uL (0.0-0.0); PLATELET COUNT AUTOMATED 151 10*3/uL (130-400); RED CELL DISTRI WIDTH 13.1 % (0-14.5)
[2025-01-03 12:10] LABS: BUN 8 mg/dl (9-23)
[2025-01-03] MEDS ORDERED: Bacitracin Zinc/Neomycin/Pol 15 GM TUBE T ONE (13:40)
== END 2025-01-03 14:04 | disposition home or self-care (01) ==
LOC: ED 10:58
PROVIDERS: Emergency Medicine
DX: M79.672 Pain in left foot (principal); Z98.890 Other specified postprocedural states; Z87.891 Personal history of nicotine dependence

== ENCOUNTER 2025-01-08 22:39 | Emergency (ER) | payer OTHER ==
[~2025-01-08] VITALS: Ht 170.1 cm; Wt 104.3 kg
[2025-01-08 22:44] VITALS: BP 151/76
[2025-01-08] MEDS ORDERED: Ondansetron Hydrochloride 4 MG/2 ML VIAL IV ONE (22:55)
[2025-01-08] MEDS ORDERED: SODIUM CHLORIDE 0.9% 1,000 ML IV ONE (22:55)
[2025-01-08 23:17] LABS: MEAN CELL VOLUME 94.1 fl (80.0-94.0); MEAN CORPUSCULAR HGB 30.7 pg (27.0-31.0); MEAN PLATELET VOLUME 10.0 fl (9.6-12.3); NUCLEATED RED BLOOD CELL 0.0 % (0.0-0.0); NUCLEATED RED BLOOD CELL 0.0 10*3/uL (0.0-0.0); PLATELET COUNT AUTOMATED 136 10*3/uL (130-400); RED CELL DISTRI WIDTH 14.0 % (0-14.5)
[2025-01-08 23:29] LABS: BUN 10 mg/dl (9-23)
[2025-01-08 23:44] LABS: MANUAL DIFF REFLEX YES
[2025-01-08 23:47] LABS: PLATELET SUFFICIENCY LOW (NORMAL)
[2025-01-09] MEDS ORDERED: SEPTDS PO (00:32)
[2025-01-09] MEDS ORDERED: LEVOFLOXACIN 500 MG TAB PO ONE (00:35)
[2025-01-09] MEDS ORDERED: LEVOFLOXACIN500 MG PO (00:39)
== END 2025-01-09 00:50 | disposition home or self-care (01) ==
LOC: ED 22:39
DX: K40.90 Unilateral inguinal hernia, without obstruction or gangrene, not specified as recurrent (principal); N45.1 Epididymitis; R33.9 Retention of urine, unspecified; R19.7 Diarrhea, unspecified; M19.90 Unspecified osteoarthritis, unspecified site; G89.29 Other chronic pain; K21.9 Gastro-esophageal reflux disease without esophagitis; E78.5 Hyperlipidemia, unspecified; J44.9 Chronic obstructive pulmonary disease, unspecified; F32.A Depression, unspecified; I10 Essential (primary) hypertension; Z79.899 Other long term (current) drug therapy; Z87.891 Personal history of nicotine dependence; Z98.890 Other specified postprocedural states

== ENCOUNTER 2025-02-08 18:41 | Emergency (ER) | payer OTHER ==
[~2025-02-08] VITALS: Wt 104.3 kg
[~2025-02-08 18:41] MED LIST changes: +LEVOFLOXACIN500 MG PO; +SEPTDS PO
[2025-02-08 18:50] VITALS: BP 120/67
[2025-02-08] MEDS ORDERED: ERYTHROMYCIN OPH1 GM OPH (19:24)
[2025-02-08] MEDS ORDERED: ERYTHROMYCIN 1 GM TUBE OPH ONE (19:25)
[2025-02-08] MEDS ORDERED: Acetaminophen/Oxycodone Hydr 7.5 MG/325 MG TABLET PO ONE (19:40)
[2025-02-08] MEDS ORDERED: IOHEXOL 300 MG/ML 100 ML VIAL IV ONE (19:45)
[2025-02-08 19:54] LABS: BASO # 0.0 10*3/uL (0.0-0.1); BASO % 0.5 % (0.0-1.0); EOS # 0.2 10*3/uL (0.0-0.4); EOS % 2.6 % (1.0-4.0); MEAN CELL VOLUME 94.2 fl (80.0-94.0); MEAN CORPUSCULAR HGB 31.0 pg (27.0-31.0); MEAN PLATELET VOLUME 9.4 fl (9.6-12.3); MONO # 0.5 10*3/uL (0.1-1.0); MONO % 5.6 % (3.0-9.0); NEUT # 5.7 10*3/uL (2.3-7.9); NEUT % 66.6 % (47.0-73.0); NUCLEATED RED BLOOD CELL 0.0 % (0.0-0.0); NUCLEATED RED BLOOD CELL 0.0 10*3/uL (0.0-0.0); PLATELET COUNT AUTOMATED 178 10*3/uL (130-400); RED CELL DISTRI WIDTH 13.5 % (0-14.5)
[2025-02-08 20:25] LABS: BUN 9 mg/dl (9-23)
== END 2025-02-08 20:00 | disposition left against medical advice (07) ==
LOC: ED 18:41
PROVIDERS: Nurse Practitioner Family
DX: R10.9 Unspecified abdominal pain (principal); N50.89 Other specified disorders of the male genital organs; J44.9 Chronic obstructive pulmonary disease, unspecified; I10 Essential (primary) hypertension; F41.1 Generalized anxiety disorder; K21.9 Gastro-esophageal reflux disease without esophagitis; E78.5 Hyperlipidemia, unspecified; Z53.29 Procedure and treatment not carried out because of patient's decision for other reasons; Z87.891 Personal history of nicotine dependence; Z98.890 Other specified postprocedural states

== ENCOUNTER 2025-03-23 19:13 | Emergency (ER) | payer OTHER ==
[~2025-03-23] VITALS: Ht 170.1 cm; Wt 104.8 kg
[~2025-03-23 19:13] MED LIST changes: +ERYTHROMYCIN OPH1 GM OPH
[2025-03-23 20:19] VITALS: BP 138/86
[2025-03-23] MEDS ORDERED: Acetaminophen/Hydrocodone 5 MG/325 MG TABLET PO ONE (21:30)
[2025-03-23] MEDS ORDERED: Acetaminophen/Oxycodone 5 MG/325 MG TABLET PO ONE (21:35)
== END 2025-03-23 22:05 | disposition home or self-care (01) ==
LOC: ED 19:13
DX: S91.002A Unspecified open wound, left ankle, initial encounter (principal); J44.9 Chronic obstructive pulmonary disease, unspecified; I10 Essential (primary) hypertension; F41.1 Generalized anxiety disorder; K21.9 Gastro-esophageal reflux disease without esophagitis; E78.5 Hyperlipidemia, unspecified; G47.30 Sleep apnea, unspecified; M19.90 Unspecified osteoarthritis, unspecified site; Z87.891 Personal history of nicotine dependence; Z98.890 Other specified postprocedural states; X58.XXXA Exposure to other specified factors, initial encounter; Y93.89 Activity, other specified; Y92.89 Other specified places as the place of occurrence of the external cause; Y99.8 Other external cause status